=== PATIENT | female | born 1960 | race African-American/Black ===

== ENCOUNTER 2017-06-16 09:16 | Emergency (ER) | payer BC ==
[~2017-06-16] VITALS: Ht 160 cm; Wt 63.5 kg
--- NOTE | 2017-06-16 09:35 | NUR ---
LEFT SIDED FACIAL NUMBNESS SINCE 0700 STATES ON OFF RADIATING TO LEFT ARM.
[2017-06-16 10:20] LABS: BASOPHILS % (AUTO) 0.5 % (0.0-2.0); EOSINOPHILS # (AUTO) 0.1 /CMM (0.0-0.7); EOSINOPHILS % (AUTO) 1.2 % (0.0-6.0); HEMATOCRIT 40 % (33-45); HEMOGLOBIN 13.1 g/dL (11.5-14.8); LYMPHOCYTES # (AUTO) 2.4 /CMM (0.8-4.8); LYMPHOCYTES % (AUTO) 47.1 % (20.0-44.0); MEAN CORPUSCULAR HEMOGLOBIN 27 PG (26.0-33.0); MEAN CORPUSCULAR HGB CONC 33 g/dl (31.0-36.0); MEAN CORPUSCULAR VOLUME 81 fL (82-100); MONOCYTES # (AUTO) 0.4 /CMM (0.1-1.30); MONOCYTES % (AUTO) 7.8 % (2.0-12.0); NEUTROPHILS # (AUTO) 2.2 /CMM (1.8-8.9); NEUTROPHILS % (AUTO) 43.4 % (43.0-81.0); PLATELET COUNT (AUTO) 248 /CMM (150-450); RDW COEFFICIENT OF VARIATION 13.8 (11.5-15.0); WHITE BLOOD COUNT (AUTO) 5.1 K/uL (4.3-11.0)
[2017-06-16 10:29] LABS: CALCIUM, SERUM 9.3 mg/dL (8.5-10.1); CREATININE 0.8 mg/dL (0.6-1.3)
[2017-06-16 10:33] LABS: INR 0.9 (0.87-1.13); PROTHROMBIN TIME 9.4 SECS (9.5-12.7)
--- NOTE | 2017-06-16 11:00 | NUR ---
assume pt care. here for facial and hand numbness since this am. seen and evaluated by ermd. stable vitals. will continue to monitor.
[2017-06-16] MEDS ORDERED: ASPIRIN 325 MG TABLET PO ONE (12:00)
[2017-06-16] MEDS ORDERED: ASPIRIN 325 MG TABLET ONE ×2 (12:15→12:22)
--- NOTE | 2017-06-16 12:43 | NUR ---
Patient discharged to home in stable condition. Written and verbal after care instructions given. Patient verbalizes understanding of instruction.IV removed. Catheter intact and site benign. Pressure and 4x4 applied to site. No bleeding noted.
[2017-06-16 12:44] VITALS: BP 128/77
== END 2017-06-16 12:45 | disposition home or self-care (01) ==
LOC: ER 09:21
DX: R20.0 Anesthesia of skin (principal); F41.9 Anxiety disorder, unspecified; R79.1 Abnormal coagulation profile; Z79.82 Long term (current) use of aspirin
CPT/HCPCS: 36415; 70450; 80048; 84484; 85025; 85730; 93005; 99285; A4606; Z7610